=== PATIENT | male | born 1975 | race Caucasian/White ===

== ENCOUNTER 2018-01-28 18:45 | Inpatient (IN) ==
[2018-01-28] MEDS ORDERED: PHARMACY CONSULT - VANCOMYCIN XX SCH (19:39)
[2018-01-28] MEDS ORDERED: PHENERGAN INJ 25 MG IV PRN (19:39)
[2018-01-28] MEDS ORDERED: NORCO 7.5/325 MG TAB PO PRN (19:39)
[2018-01-28] MEDS ORDERED: VANCOMYCIN HCL 1 GM VIAL 1 G in D5W 250 ML IV 250 ML IV ONE (20:00)
[2018-01-28 20:23] LABS: BILIRUBIN,URINE NEGATIVE (NEGATIVE); BLOOD/HEMOGLOBIN,URINE NEGATIVE (NEGATIVE); GLUCOSE, URINE NEGATIVE (NEGATIVE); KETONES,URINE NEGATIVE (NEGATIVE); LEUKOCYTE ESTERASE ,URINE NEGATIVE (NEGATIVE); NITRITES,URINE NEGATIVE (NEGATIVE); PROTEIN,URINE NEGATIVE (NEGATIVE); UROBILINOGEN,URINE NORMAL (NORMAL)
[2018-01-28 20:23] LABS: BASOPHILS % (AUTO) 0.3 % (0.2-1.0); EOSINOPHILS # (AUTO) 0.1 x10^3/uL (0.0-0.2); EOSINOPHILS % (AUTO) 1.2 % (0.9-2.9); HEMATOCRIT 46.9 % (42.0-54.0); HEMOGLOBIN 16.2 g/dL (13.5-18.0); MEAN CORPUSCULAR HEMOGLOBIN 32.2 pg (27.0-34.0); MEAN CORPUSCULAR HGB CONC 34.5 g/dL (33.0-35.0); MEAN CORPUSCULAR VOLUME 93.3 fL (80.0-100.0); MEAN PLATELET VOLUME 8.7 fL (7.4-11.0); MONOCYTES # (AUTO) 1.2 x10^3/uL (0.3-0.8); MONOCYTES % (AUTO) 11.6 % (0.0-13.0); NEUTROPHILS # (AUTO) 7.2 x10^3/uL (2.2-4.8); NEUTROPHILS % (AUTO) 67.9 % (42.0-75.0); PLATELET COUNT 218 X10^3/uL (150.0-450.0); RED BLOOD COUNT 5.03 X10^6/uL (4.7-6.0); RED CELL DISTRIBUTION WIDTH 12.8 % (11.6-16.5); WHITE BLOOD COUNT 10.6 X10^3/uL (3.6-10.0)
[2018-01-28 20:32] LABS: APPEARANCE,URINE CLEAR (CLEAR); COLOR,URINE YELLOW (YELLOW)
[2018-01-28 20:35] LABS: ALANINE AMINOTRANSFERASE 58 Units/L (12-78); ALBUMIN 3.9 g/dL (3.4-5.0); ALKALINE PHOSPHATASE 70 Units/L (46-116); ASPARTATE AMINO TRANSFERASE 25 Units/L (15-37); BLOOD UREA NITROGEN 16 mg/dL (7-18); CALCIUM 8.9 mg/dL (8.5-10.1); CHLORIDE 102 mmol/L (98-107); CREATININE 0.96 mg/dL (0.70-1.30); SODIUM 139 mmol/L (136-145); TOTAL PROTEIN 8.1 g/dL (6.4-8.2); eGFR NON BLACK RACES > 60 (>60)
--- NOTE | 2018-01-28 22:05 | RAD ---
Right hand three views Indication: Ring finger swelling for 2 weeks Findings: There is soft tissue swelling about the ring finger, without underlying cortical lucency or malalignment. Swelling is also seen over the dorsum of the hand and to a lesser extent the long finger, index finger and little finger Impression: Soft tissue swelling over the hand, particularly the ring finger suggesting cellulitis. Significant soft tissue infection cannot be excluded. No osseous abnormality seen Reported By:
[2018-01-28 22:07] VITALS: BMI 34.0
[2018-01-28] MEDS: NS 1000 ML 1,000 ML IV SCH (22:17)
[2018-01-28] MEDS ORDERED: VANCOMYCIN 1 GRAM PREMIX (ADDVANTAGE) 250 ML IV ONE (22:32)
[2018-01-28] MEDS: TORADOL 30 MG VIAL IVP PRN (23:19)
[2018-01-29] MEDS ORDERED: VANCOMYCIN 1 GRAM PREMIX (ADDVANTAGE) 250 ML IV ONE (04:21)
[2018-01-29] MEDS: VANCOMYCIN HCL 1 GM VIAL 1 G in D5W 250 ML IV 250 ML IV SCH ×2 (05:00→13:27)
[2018-01-29 06:11] LABS: BASOPHILS % (AUTO) 0.4 % (0.2-1.0); EOSINOPHILS # (AUTO) 0.1 x10^3/uL (0.0-0.2); HEMATOCRIT 46.8 % (42.0-54.0); HEMOGLOBIN 16.2 g/dL (13.5-18.0); LYMPHOCYTES # (AUTO) 1.9 X10^3/uL (1.3-2.9); LYMPHOCYTES % (AUTO) 15.5 % (21.0-51.0); MEAN CORPUSCULAR HGB CONC 34.5 g/dL (33.0-35.0); MEAN CORPUSCULAR VOLUME 92.8 fL (80.0-100.0); MEAN PLATELET VOLUME 9.1 fL (7.4-11.0); MONOCYTES # (AUTO) 1.6 x10^3/uL (0.3-0.8); MONOCYTES % (AUTO) 12.8 % (0.0-13.0); NEUTROPHILS # (AUTO) 8.6 x10^3/uL (2.2-4.8); NEUTROPHILS % (AUTO) 70.3 % (42.0-75.0); PLATELET COUNT 205 X10^3/uL (150.0-450.0); RED BLOOD COUNT 5.04 X10^6/uL (4.7-6.0); RED CELL DISTRIBUTION WIDTH 12.5 % (11.6-16.5); WHITE BLOOD COUNT 12.3 X10^3/uL (3.6-10.0)
[2018-01-29 06:18] LABS: ALANINE AMINOTRANSFERASE 50 Units/L (12-78); ALBUMIN 3.6 g/dL (3.4-5.0); ALKALINE PHOSPHATASE 68 Units/L (46-116); ASPARTATE AMINO TRANSFERASE 29 Units/L (15-37); BLOOD UREA NITROGEN 14 mg/dL (7-18); CALCIUM 8.6 mg/dL (8.5-10.1); CARBON DIOXIDE 24.5 mmol/L (21-32); CHLORIDE 103 mmol/L (98-107); CREATININE 0.97 mg/dL (0.70-1.30); SODIUM 138 mmol/L (136-145); TOTAL PROTEIN 7.7 g/dL (6.4-8.2); eGFR NON BLACK RACES > 60 (>60)
[2018-01-29 06:52] LABS: ERYTHROCYTE SEDIMENTATION RATE 14 MM/HOUR (0-15)
[2018-01-29] MEDS: TORADOL 30 MG VIAL IVP PRN (07:25)
[2018-01-29] MEDS: NS 1000 ML 1,000 ML IV SCH ×2 (08:49→11:02)
[2018-01-29] MEDS ORDERED: XYLOCAINE 2 % (PLAIN) ONE (09:24)
[2018-01-29] MEDS ORDERED: XYLOCAINE 1 % (PLAIN) ONE (09:40)
--- NOTE | 2018-01-29 10:57 | OR.GENERIC ---
Post-Op Note Generic - Post-Op Note Operative Report: drainage and debridement of finger abscess Rt ring finger . located on the dorsal aspect of the finger there was associated cellulitis with dusky skin and edema of the finger. C&S was obtained . will keep the hand elevated on IV pole in a sling .
--- NOTE | 2018-01-29 11:01 | DR.UPDATE ---
H&P Update History and Physical Update: WAS SEEN IN THE OFFICE BY CRISTINA GARCIA VENEER CLIPPER ON SATURDAY AND TREATED FOR CELLULITIS TO THE RIGHT HAND AND RING FINGER. HE HAS BEEN ON ORAL ANTIBIOTICS WITH NO IMPROVEMENT IN SYMPTOMS. HE WAS ADMITTED FOR IV ANTIBIOTIC THERAPY AND SURGICAL CONSULT. HE HAS BEEN SEEN AND EXAMINED WITH NO CHANGES NOT ED TO H&P Changes noted: NO Yes with the following:
[2018-01-29] MEDS: DILAUDID INJ IVP PRN ×3 (11:02→22:28)
[2018-01-29] MEDS ORDERED: XYLOCAINE 1 % (PLAIN) IM ONE (11:11)
[2018-01-29] MEDS ORDERED: NS IRRIGATION 500 ML IR ONE (13:41)
[2018-01-29] MEDS ORDERED: VERSED ONE (16:04)
[2018-01-29 21:24] LABS: CREATININE 0.96 mg/dL (0.70-1.30); VANCOMYCIN,TROUGH 7.4 ug/mL (15-20)
[2018-01-29] MEDS ORDERED: PHARMACY COMMENT IV NR (21:30)
[2018-01-29] MEDS ORDERED: VANCOMYCIN HCL 1 GM VIAL ONE (22:10)
[2018-01-29] MEDS ORDERED: VANCOMYCIN HCL 500 MG VIAL ONE (22:10)
[2018-01-29] MEDS ORDERED: D5W 250 ML IV 250 ML IV ONE (22:10)
[2018-01-29] MEDS: VANCOMYCIN HCL 500 MG VIAL 250 MG, VANCOMYCIN HCL 1 GM VIAL 1 G in D5W 250 ML IV 250 ML IV SCH (22:25)
[2018-01-30] MEDS: NS 1000 ML 1,000 ML IV SCH ×4 (02:01→22:40)
[2018-01-30] MEDS: DILAUDID INJ IVP PRN (02:05)
[2018-01-30] MEDS ORDERED: VANCOMYCIN HCL 500 MG VIAL ONE (02:28)
[2018-01-30] MEDS ORDERED: VANCOMYCIN HCL 1 GM VIAL ONE (02:28)
[2018-01-30] MEDS ORDERED: D5W 250 ML IV 250 ML IV ONE (02:28)
[2018-01-30] MEDS: VANCOMYCIN HCL 500 MG VIAL 250 MG, VANCOMYCIN HCL 1 GM VIAL 1 G in D5W 250 ML IV 250 ML IV SCH ×3 (05:36→22:40)
[2018-01-30 05:58] LABS: BASOPHILS % (AUTO) 0.6 % (0.2-1.0); EOSINOPHILS # (AUTO) 0.1 x10^3/uL (0.0-0.2); EOSINOPHILS % (AUTO) 2.3 % (0.9-2.9); HEMATOCRIT 44.2 % (42.0-54.0); HEMOGLOBIN 15.3 g/dL (13.5-18.0); LYMPHOCYTES # (AUTO) 1.6 X10^3/uL (1.3-2.9); LYMPHOCYTES % (AUTO) 26.2 % (21.0-51.0); MEAN CORPUSCULAR HEMOGLOBIN 32.6 pg (27.0-34.0); MEAN CORPUSCULAR HGB CONC 34.5 g/dL (33.0-35.0); MEAN CORPUSCULAR VOLUME 94.4 fL (80.0-100.0); MEAN PLATELET VOLUME 8.3 fL (7.4-11.0); MONOCYTES # (AUTO) 0.7 x10^3/uL (0.3-0.8); MONOCYTES % (AUTO) 11.1 % (0.0-13.0); NEUTROPHILS # (AUTO) 3.7 x10^3/uL (2.2-4.8); NEUTROPHILS % (AUTO) 59.8 % (42.0-75.0); PLATELET COUNT 195 X10^3/uL (150.0-450.0); RED BLOOD COUNT 4.69 X10^6/uL (4.7-6.0); RED CELL DISTRIBUTION WIDTH 12.6 % (11.6-16.5); WHITE BLOOD COUNT 6.2 X10^3/uL (3.6-10.0)
[2018-01-30 06:13] LABS: ALANINE AMINOTRANSFERASE 44 Units/L (12-78); ALBUMIN 3.1 g/dL (3.4-5.0); ALKALINE PHOSPHATASE 57 Units/L (46-116); ASPARTATE AMINO TRANSFERASE 21 Units/L (15-37); BLOOD UREA NITROGEN 10 mg/dL (7-18); CALCIUM 8.4 mg/dL (8.5-10.1); CARBON DIOXIDE 26.6 mmol/L (21-32); CHLORIDE 102 mmol/L (98-107); COR CA(FOR HYPOALB) 9.1 mg/dL (8.5-10.1); COR NA(FOR HYPERGLY) 138 mmol/L (136-145); CREATININE 0.84 mg/dL (0.70-1.30); SODIUM 137 mmol/L (136-145); TOTAL PROTEIN 6.8 g/dL (6.4-8.2); eGFR NON BLACK RACES > 60 (>60)
[2018-01-30] MEDS: TORADOL 30 MG VIAL IVP PRN ×3 (07:30→22:53)
[2018-01-30] MEDS ORDERED: NORCO 10/325 TAB PO PRN (09:41)
--- NOTE | 2018-01-30 10:23 | PCM.PROG ---
Progress Note - Progress Note for Day of Date of Exam: 01/29/18 - Subjective Subjective: WAS ADMITTED FOR RIGHT HAND/FINGER CELLULITIS THAT STARTED EARLIER IN THE WEEK. HE HAD BEEN TAKING KEFLEX AND BACTRIM AT HOME WITHOUT IMPROVEMENT. TODAY, HE IS ALERT AND ORIENTED, SITTING IN CHAIR ON MORNING ROUNDS. RIGHT RING FINGER IS NOTED TO BE VERY EDEMATOUS AND RED. THERE IS PURULENT DRAINAGE NOTED. HIS VITALS THIS MORNING ARE 98.2-73-22-98%RA-144/81. LABS WERE OBTAINED. ABNORMAL LAB VALUES INCLUDE THE FOLLOWING: WBC 12.3, GLUCOSE 100, CRP 42.90. WOUND CULTURES ARE PENDING. A HAND XRAY WAS OBTAINED ON ADMISSION AND REVEALED: Soft tissue swelling over the hand, particularly the ring finger suggesting cellulitis. Significant soft tissue infection cannot be excluded. No osseous abnormality seen. HAS CONSULTED WITH PATIENT THIS MORNING AND PLANS TO TAKE HIM TO THE OR FOR I&D AND DEBRIDEMENT. WE ARE IN AGREEMENT WITH PLAN. HE IS CURRENTLY RECEIVING IV VANCOMYCIN. WE WILL CONTINUE WITH CURRENT PLAN OF CARE TODAY. OTHERWISE, WE WILL FOLLOW UP WITH AM LABS AND CONTINUE TO MONTIOR PATIENT. - Past Medical Family Social History Past Med/Fam/Surg Hx: No changes since H&P Allergies: Allergies No Known Drug Allergies [NKDA] Allergy (Verified 01/28/18 19:39) - Review of Systems ROS: No change since H&P - Vital Signs and I&O's Vital Signs: Temperature 97.5 F Pulse Rate [Left Radial] 59 Respiratory Rate 20 Blood Pressure [Left Arm] 135/75 Blood Pressure [Right Arm] 144/81 O2 Sat by Pulse Oximetry 98 Intake and Output: Intake & Output 01/27/18 01/28/18 01/29/18 01/30/18 11:59 11:59 11:59 11:59 Intake Total 1780 / 1780 6112 / 6112 Output Total 100 / 100 6 / Balance 1680 / 1680 6106 / 6106 - Physical Exam Oriented: Normal Eyes: Normal Ear: Normal Nose: Normal Throat: Normal Respiratory: Normal Cardiovascular: Normal : Normal Auscultation: Bowel Sounds: Normal Palpation: Normal Tenderness: Normal Skin: Red, Tender, Hot, Wound Musculoskeletal: Right, Hand, Swelling, Tender Psychiatric: Normal Mood Description: Calm Affect: Normal Speech Pattern: Clear - Laboratory and Diagnostics Result Diagrams: 01/30/18 05:34 01/30/18 05:34 Labs: 01/29/18 10:20 Finger - Right Ring Gram Stain - Final 01/29/18 10:20 Finger - Right Ring Wound Culture - Preliminary 01/28/18 22:47 Hand - Right Gram Stain - Final 01/28/18 22:47 Hand - Right Wound Culture - Preliminary Laboratory WBC 6.2 X10^3/uL (3.6-10.0) 01/30/18 05:34 RBC 4.69 X10^6/uL (4.7-6.0) L 01/30/18 05:34 Hgb 15.3 g/dL (13.5-18.0) 01/30/18 05:34 Hct 44.2 % (42.0-54.0) 01/30/18 05:34 MCV 94.4 fL (80.0-100.0) 01/30/18 05:34 MCH 32.6 pg (27.0-34.0) 01/30/18 05:34 MCHC 34.5 g/dL (33.0-35.0) 01/30/18 05:34 RDW 12.6 % (11.6-16.5) 01/30/18 05:34 Plt Count 195 X10^3/uL (150.0-450.0) 01/30/18 05:34 MPV 8.3 fL (7.4-11.0) 01/30/18 05:34 Neut % (Auto) 59.8 % (42.0-75.0) 01/30/18 05:34 Lymph % (Auto) 26.2 % (21.0-51.0) 01/30/18 05:34 [place] % (Auto) 11.1 % (0.0-13.0) 01/30/18 05:34 Eos % (Auto) 2.3 % (0.9-2.9) 01/30/18 05:34 Baso % (Auto) 0.6 % (0.2-1.0) 01/30/18 05:34 Neut # (Auto) 3.7 x10^3/uL (2.2-4.8) 01/30/18 05:34 Lymph # (Auto) 1.6 X10^3/uL (1.3-2.9) 01/30/18 05:34 [place] # (Auto) 0.7 x10^3/uL (0.3-0.8) 01/30/18 05:34 Eos # (Auto) 0.1 x10^3/uL (0.0-0.2) 01/30/18 05:34 Baso # (Auto) 0.0 X10^3/uL (0.0-0.1) 01/30/18 05:34 Absolute Nucleated RBC 0.0 /100WBC 01/30/18 05:34 ESR 14 MM/HOUR (0-15) 01/29/18 05:18 Sodium 137 mmol/L (136-145) 01/30/18 05:34 Corrected Sodium 138 mmol/L (136-145) 01/30/18 05:34 Potassium 4.0 mmol/L (3.5-5.1) 01/30/18 05:34 Chloride 102 mmol/L (98-107) 01/30/18 05:34 Carbon Dioxide 26.6 mmol/L (21-32) 01/30/18 05:34 BUN 10 mg/dL (7-18) 01/30/18 05:34 Creatinine 0.84 mg/dL (0.70-1.30) 01/30/18 05:34 Est GFR (MDRD) Af Amer > 60 (>60) 01/30/18 05:34 Est GFR (MDRD) Non-Af > 60 (>60) 01/30/18 05:34 Glucose 130 mg/dL (65-99) H 01/30/18 05:34 Calcium 8.4 mg/dL (8.5-10.1) L 01/30/18 05:34 Corrected Calcium 9.1 mg/dL (8.5-10.1) 01/30/18 05:34 Total Bilirubin 0.40 mg/dL (0.2-1.0) 01/30/18 05:34 AST 21 Units/L (15-37) 01/30/18 05:34 ALT 44 Units/L (12-78) 01/30/18 05:34 Alkaline Phosphatase 57 Units/L (46-116) 01/30/18 05:34 C-Reactive Protein 42.90 mg/L (0-3.0) H 01/29/18 05:18 Total Protein 6.8 g/dL (6.4-8.2) 01/30/18 05:34 Albumin 3.1 g/dL (3.4-5.0) L 01/30/18 05:34 Globulin 3.7 g/dL (2.5-4.5) 01/30/18 05:34 Albumin/Globulin Ratio 0.8 Ratio (1.1-2.1) L 01/30/18 05:34 Specimen Type Clean catch urine 01/28/18 20:00 Urine Color Yellow (YELLOW) 01/28/18 20:00 Urine Appearance Clear (CLEAR) 01/28/18 20:00 Urine pH 6.0 (5.0 - 8.0) 01/28/18 20:00 Ur Specific [place] 1.015 (1.000-1.030) 01/28/18 20:00 Urine Protein Negative (NEGATIVE) 01/28/18 20:00 Urine Glucose (UA) Negative (NEGATIVE) 01/28/18 20:00 Urine Ketones Negative (NEGATIVE) 01/28/18 20:00 Urine Occult Blood Negative (NEGATIVE) 01/28/18 20:00 Urine Nitrite Negative (NEGATIVE) 01/28/18 20:00 Urine Bilirubin Negative (NEGATIVE) 01/28/18 20:00 Urine Urobilinogen Normal (NORMAL) 01/28/18 20:00 Ur Leukocyte Esterase Negative (NEGATIVE) 01/28/18 20:00 Vancomycin Trough 7.4 ug/mL (15-20) L 01/29/18 21:05 - Plan (1) Cellulitis of finger of right hand Status: Acute Plan: IV ANTIBIOTICS, WOUND CARE, WOUND CULTURES, I&D AND DEBRIDEMENT TODAY, CONTINUE TO MONITOR
[2018-01-30] MEDS ORDERED: PHARMACY COMMENT IV NR (21:00)
--- NOTE | 2018-01-30 21:33 | PCM.PROG ---
Progress Note - Progress Note for Day of Date of Exam: 01/30/18 - Subjective Subjective: WAS ADMITTED FOR RIGHT HAND/FINGER CELLULITIS THAT STARTED EARLIER IN THE WEEK. HE HAD BEEN TAKING KEFLEX AND BACTRIM AT HOME WITHOUT IMPROVEMENT. TODAY, HE IS ALERT AND ORIENTED, SITTING IN CHAIR ON MORNING ROUNDS. RIGHT RING FINGER IS NOTED TO BE VERY EDEMATOUS AND RED. THERE IS PURULENT DRAINAGE NOTED. HIS VITALS THIS MORNING ARE 97.5-59-20-98%-135/75. LABS WERE OBTAINED. ABNORMAL LAB VALUES INCLUDE THE FOLLOWING: RBC 4.69, GLUCOSE 130, CALCIUM 8.4, ALBUMIN 3.1. WOUND CULTURES AND BLOOD CULTURES ARE PENDING. TOOK PATIENT TO THE OR YESTERDAY FOR I&D AND DEBRIDEMENT OF WOUND. HE REPORTS THAT THERE WAS A LARGE AMOUNT OF PURULENT COLLECTION UNDERNEATH WHICH WAS TRACING DOWN CLOSE TO THE TENDONS. HE IS CURRENTLY RECEIVING IV VANCOMYCIN. WE WILL CONTINUE WITH CURRENT PLAN OF CARE TODAY. WE WILL INCREASE NORCO TO 10/325MG PO Q6H PRN. OTHERWISE, WE WILL FOLLOW UP WITH AM LABS AND CONTINUE TO MONTIOR PATIENT. - Past Medical Family Social History Past Med/Fam/Surg Hx: No changes since H&P Allergies: Allergies No Known Drug Allergies [NKDA] Allergy (Verified 01/28/18 19:39) - Review of Systems ROS: No change since H&P - Vital Signs and I&O's Vital Signs: Temperature 97.9 F Pulse Rate [Left Radial] 66 Respiratory Rate 20 Blood Pressure [Left Arm] 139/76 Blood Pressure [Right Arm] 144/81 O2 Sat by Pulse Oximetry 96 Intake and Output: Intake & Output 01/28/18 01/29/18 01/30/18 01/31/18 11:59 11:59 11:59 11:59 Intake Total 1780 / 1780 6112 / 6112 1879 Output Total 100 / 100 6 / 6 Balance 1680 / 1680 6106 / 6106 1879 - Physical Exam Oriented: Normal Eyes: Normal Ear: Normal Nose: Normal Throat: Normal Respiratory: Normal Cardiovascular: Normal : Normal Auscultation: Bowel Sounds: Normal Palpation: Normal Tenderness: Normal Skin: Red, Tender, Hot, Wound Musculoskeletal: Right, Hand, Swelling, Tender Psychiatric: Normal Mood Description: Calm Affect: Normal Speech Pattern: Clear - Laboratory and Diagnostics Result Diagrams: 01/30/18 05:34 01/30/18 05:34 Labs: 01/28/18 22:47 Hand - Right Gram Stain - Final 01/28/18 22:47 Hand - Right Wound Culture - Preliminary 01/28/18 19:54 Blood Blood Culture - Preliminary 01/28/18 19:48 Blood Blood Culture - Preliminary 01/29/18 10:20 Finger - Right Ring Gram Stain - Final 01/29/18 10:20 Finger - Right Ring Wound Culture - Preliminary Laboratory WBC 6.2 X10^3/uL (3.6-10.0) 01/30/18 05:34 RBC 4.69 X10^6/uL (4.7-6.0) L 01/30/18 05:34 Hgb 15.3 g/dL (13.5-18.0) 01/30/18 05:34 Hct 44.2 % (42.0-54.0) 01/30/18 05:34 MCV 94.4 fL (80.0-100.0) 01/30/18 05:34 MCH 32.6 pg (27.0-34.0) 01/30/18 05:34 MCHC 34.5 g/dL (33.0-35.0) 01/30/18 05:34 RDW 12.6 % (11.6-16.5) 01/30/18 05:34 Plt Count 195 X10^3/uL (150.0-450.0) 01/30/18 05:34 MPV 8.3 fL (7.4-11.0) 01/30/18 05:34 Neut % (Auto) 59.8 % (42.0-75.0) 01/30/18 05:34 Lymph % (Auto) 26.2 % (21.0-51.0) 01/30/18 05:34 [place] % (Auto) 11.1 % (0.0-13.0) 01/30/18 05:34 Eos % (Auto) 2.3 % (0.9-2.9) 01/30/18 05:34 Baso % (Auto) 0.6 % (0.2-1.0) 01/30/18 05:34 Neut # (Auto) 3.7 x10^3/uL (2.2-4.8) 01/30/18 05:34 Lymph # (Auto) 1.6 X10^3/uL (1.3-2.9) 01/30/18 05:34 [place] # (Auto) 0.7 x10^3/uL (0.3-0.8) 01/30/18 05:34 Eos # (Auto) 0.1 x10^3/uL (0.0-0.2) 01/30/18 05:34 Baso # (Auto) 0.0 X10^3/uL (0.0-0.1) 01/30/18 05:34 Absolute Nucleated RBC 0.0 /100WBC 01/30/18 05:34 ESR 14 MM/HOUR (0-15) 01/29/18 05:18 Sodium 137 mmol/L (136-145) 01/30/18 05:34 Corrected Sodium 138 mmol/L (136-145) 01/30/18 05:34 Potassium 4.0 mmol/L (3.5-5.1) 01/30/18 05:34 Chloride 102 mmol/L (98-107) 01/30/18 05:34 Carbon Dioxide 26.6 mmol/L (21-32) 01/30/18 05:34 BUN 10 mg/dL (7-18) 01/30/18 05:34 Creatinine 0.84 mg/dL (0.70-1.30) 01/30/18 05:34 Est GFR (MDRD) Af Amer > 60 (>60) 01/30/18 05:34 Est GFR (MDRD) Non-Af > 60 (>60) 01/30/18 05:34 Glucose 130 mg/dL (65-99) H 01/30/18 05:34 Calcium 8.4 mg/dL (8.5-10.1) L 01/30/18 05:34 Corrected Calcium 9.1 mg/dL (8.5-10.1) 01/30/18 05:34 Total Bilirubin 0.40 mg/dL (0.2-1.0) 01/30/18 05:34 AST 21 Units/L (15-37) 01/30/18 05:34 ALT 44 Units/L (12-78) 01/30/18 05:34 Alkaline Phosphatase 57 Units/L (46-116) 01/30/18 05:34 C-Reactive Protein 42.90 mg/L (0-3.0) H 01/29/18 05:18 Total Protein 6.8 g/dL (6.4-8.2) 01/30/18 05:34 Albumin 3.1 g/dL (3.4-5.0) L 01/30/18 05:34 Globulin 3.7 g/dL (2.5-4.5) 01/30/18 05:34 Albumin/Globulin Ratio 0.8 Ratio (1.1-2.1) L 01/30/18 05:34 Specimen Type Clean catch urine 01/28/18 20:00 Urine Color Yellow (YELLOW) 01/28/18 20:00 Urine Appearance Clear (CLEAR) 01/28/18 20:00 Urine pH 6.0 (5.0 - 8.0) 01/28/18 20:00 Ur Specific [place] 1.015 (1.000-1.030) 01/28/18 20:00 Urine Protein Negative (NEGATIVE) 01/28/18 20:00 Urine Glucose (UA) Negative (NEGATIVE) 01/28/18 20:00 Urine Ketones Negative (NEGATIVE) 01/28/18 20:00 Urine Occult Blood Negative (NEGATIVE) 01/28/18 20:00 Urine Nitrite Negative (NEGATIVE) 01/28/18 20:00 Urine Bilirubin Negative (NEGATIVE) 01/28/18 20:00 Urine Urobilinogen Normal (NORMAL) 01/28/18 20:00 Ur Leukocyte Esterase Negative (NEGATIVE) 01/28/18 20:00 Vancomycin Trough 7.4 ug/mL (15-20) L 01/29/18 21:05 - Plan (1) Cellulitis of finger of right hand Status: Acute Plan: IV ANTIBIOTICS, WOUND CARE, WOUND CULTURES, CONTINUE TO MONITOR
[2018-01-30 21:56] LABS: CREATININE 0.97 mg/dL (0.70-1.30); VANCOMYCIN,TROUGH 10.5 ug/mL (15-20)
[2018-01-30] MEDS: AMBIEN PO PRN (23:15)
[2018-01-31] MEDS: VANCOMYCIN HCL 500 MG VIAL 250 MG, VANCOMYCIN HCL 1 GM VIAL 1 G in D5W 250 ML IV 250 ML IV SCH (05:55)
[2018-01-31 05:58] LABS: BASOPHILS % (AUTO) 0.8 % (0.2-1.0); EOSINOPHILS # (AUTO) 0.2 x10^3/uL (0.0-0.2); EOSINOPHILS % (AUTO) 2.9 % (0.9-2.9); HEMATOCRIT 44.3 % (42.0-54.0); HEMOGLOBIN 15.2 g/dL (13.5-18.0); LYMPHOCYTES # (AUTO) 1.7 X10^3/uL (1.3-2.9); LYMPHOCYTES % (AUTO) 32.3 % (21.0-51.0); MEAN CORPUSCULAR HEMOGLOBIN 32.1 pg (27.0-34.0); MEAN CORPUSCULAR HGB CONC 34.2 g/dL (33.0-35.0); MEAN PLATELET VOLUME 8.2 fL (7.4-11.0); MONOCYTES # (AUTO) 0.6 x10^3/uL (0.3-0.8); MONOCYTES % (AUTO) 11.5 % (0.0-13.0); NEUTROPHILS # (AUTO) 2.8 x10^3/uL (2.2-4.8); NEUTROPHILS % (AUTO) 52.5 % (42.0-75.0); PLATELET COUNT 201 X10^3/uL (150.0-450.0); RED BLOOD COUNT 4.71 X10^6/uL (4.7-6.0); RED CELL DISTRIBUTION WIDTH 12.7 % (11.6-16.5); WHITE BLOOD COUNT 5.4 X10^3/uL (3.6-10.0)
[2018-01-31 06:10] LABS: ALANINE AMINOTRANSFERASE 43 Units/L (12-78); ALBUMIN 3.1 g/dL (3.4-5.0); ALKALINE PHOSPHATASE 55 Units/L (46-116); ASPARTATE AMINO TRANSFERASE 23 Units/L (15-37); BLOOD UREA NITROGEN 13 mg/dL (7-18); CALCIUM 8.7 mg/dL (8.5-10.1); CARBON DIOXIDE 29.8 mmol/L (21-32); CHLORIDE 105 mmol/L (98-107); COR CA(FOR HYPOALB) 9.4 mg/dL (8.5-10.1); CREATININE 0.87 mg/dL (0.70-1.30); SODIUM 143 mmol/L (136-145); TOTAL PROTEIN 6.8 g/dL (6.4-8.2); eGFR NON BLACK RACES > 60 (>60)
--- NOTE | 2018-01-31 06:37 | DR.PROGNOT ---
Hospital Progress Notes - Progress Note for Day of: Progress Note Date: 01/31/18 - Chief Complaint Chief Complaint: pain and swelling Rt ring finger is much better . only mild drainage . - Past Medical Family Social History Past Med/Fam/Surg Hx: No changes since H&P Allergies: Allergies No Known Drug Allergies [NKDA] Allergy (Verified 01/28/18 19:39) - Review Of Systems ROS: No change since H&P - Vital Signs Vital Signs: Temperature 97.6 F Pulse Rate [Left Radial] 58 Respiratory Rate 20 Blood Pressure [Left Arm] 138/80 Blood Pressure [Right Arm] 144/81 O2 Sat by Pulse Oximetry 98 - Physical Exam Oriented: Normal Eyes: Normal Ear: Normal Nose: Normal Throat: Normal Respiratory: Normal Cardiovascular: Normal : Normal GI:Auscultation: Normal GI:Palpation: Normal GI: Tenderness: Normal Skin: Wound (dorsal aspect Rt ring finger proximal phalanx is still open with exudate .) Musculoskeletal: Right, Hand, Swelling, Tender (normal ROM) Psychiatric: Normal Mood Description: Calm Affect: Normal Speech Pattern: Clear - Laboratory and Diagnostics Result Diagrams: 01/31/18 05:33 01/31/18 05:33 Labs: 01/28/18 22:47 Hand - Right Gram Stain - Final 01/28/18 22:47 Hand - Right Wound Culture - Preliminary 01/28/18 19:54 Blood Blood Culture - Preliminary 01/28/18 19:48 Blood Blood Culture - Preliminary 01/29/18 10:20 Finger - Right Ring Gram Stain - Final 01/29/18 10:20 Finger - Right Ring Wound Culture - Preliminary Laboratory WBC 5.4 X10^3/uL (3.6-10.0) 01/31/18 05:33 RBC 4.71 X10^6/uL (4.7-6.0) 01/31/18 05:33 Hgb 15.2 g/dL (13.5-18.0) 01/31/18 05:33 Hct 44.3 % (42.0-54.0) 01/31/18 05:33 MCV 94.0 fL (80.0-100.0) 01/31/18 05:33 MCH 32.1 pg (27.0-34.0) 01/31/18 05:33 MCHC 34.2 g/dL (33.0-35.0) 01/31/18 05:33 RDW 12.7 % (11.6-16.5) 01/31/18 05:33 Plt Count 201 X10^3/uL (150.0-450.0) 01/31/18 05:33 MPV 8.2 fL (7.4-11.0) 01/31/18 05:33 Neut % (Auto) 52.5 % (42.0-75.0) 01/31/18 05:33 Lymph % (Auto) 32.3 % (21.0-51.0) 01/31/18 05:33 [place] % (Auto) 11.5 % (0.0-13.0) 01/31/18 05:33 Eos % (Auto) 2.9 % (0.9-2.9) 01/31/18 05:33 Baso % (Auto) 0.8 % (0.2-1.0) 01/31/18 05:33 Neut # (Auto) 2.8 x10^3/uL (2.2-4.8) 01/31/18 05:33 Lymph # (Auto) 1.7 X10^3/uL (1.3-2.9) 01/31/18 05:33 [place] # (Auto) 0.6 x10^3/uL (0.3-0.8) 01/31/18 05:33 Eos # (Auto) 0.2 x10^3/uL (0.0-0.2) 01/31/18 05:33 Baso # (Auto) 0.0 X10^3/uL (0.0-0.1) 01/31/18 05:33 Absolute Nucleated RBC 0.2 /100WBC 01/31/18 05:33 ESR 14 MM/HOUR (0-15) 01/29/18 05:18 Sodium 143 mmol/L (136-145) 01/31/18 05:33 Corrected Sodium TNP 01/31/18 05:33 Potassium 4.4 mmol/L (3.5-5.1) 01/31/18 05:33 Chloride 105 mmol/L (98-107) 01/31/18 05:33 Carbon Dioxide 29.8 mmol/L (21-32) 01/31/18 05:33 BUN 13 mg/dL (7-18) 01/31/18 05:33 Creatinine 0.87 mg/dL (0.70-1.30) 01/31/18 05:33 Est GFR (MDRD) Af Amer > 60 (>60) 01/31/18 05:33 Est GFR (MDRD) Non-Af > 60 (>60) 01/31/18 05:33 Glucose 97 mg/dL (65-99) 01/31/18 05:33 Calcium 8.7 mg/dL (8.5-10.1) 01/31/18 05:33 Corrected Calcium 9.4 mg/dL (8.5-10.1) 01/31/18 05:33 Total Bilirubin 0.30 mg/dL (0.2-1.0) 01/31/18 05:33 AST 23 Units/L (15-37) 01/31/18 05:33 ALT 43 Units/L (12-78) 01/31/18 05:33 Alkaline Phosphatase 55 Units/L (46-116) 01/31/18 05:33 C-Reactive Protein 42.90 mg/L (0-3.0) H 01/29/18 05:18 Total Protein 6.8 g/dL (6.4-8.2) 01/31/18 05:33 Albumin 3.1 g/dL (3.4-5.0) L 01/31/18 05:33 Globulin 3.7 g/dL (2.5-4.5) 01/31/18 05:33 Albumin/Globulin Ratio 0.8 Ratio (1.1-2.1) L 01/31/18 05:33 Specimen Type Clean catch urine 01/28/18 20:00 Urine Color Yellow (YELLOW) 01/28/18 20:00 Urine Appearance Clear (CLEAR) 01/28/18 20:00 Urine pH 6.0 (5.0 - 8.0) 01/28/18 20:00 Ur Specific [place] 1.015 (1.000-1.030) 01/28/18 20:00 Urine Protein Negative (NEGATIVE) 01/28/18 20:00 Urine Glucose (UA) Negative (NEGATIVE) 01/28/18 20:00 Urine Ketones Negative (NEGATIVE) 01/28/18 20:00 Urine Occult Blood Negative (NEGATIVE) 01/28/18 20:00 Urine Nitrite Negative (NEGATIVE) 01/28/18 20:00 Urine Bilirubin Negative (NEGATIVE) 01/28/18 20:00 Urine Urobilinogen Normal (NORMAL) 01/28/18 20:00 Ur Leukocyte Esterase Negative (NEGATIVE) 01/28/18 20:00 Vancomycin Trough 10.5 ug/mL (15-20) L 01/30/18 21:30 - Assessment and Plan 1: abscess and cellulitis Rt ring finger ,. s/p debridement . same local care , elevation and IV ATB. - Problem Patient Problems: Patient Problems Cellulitis of finger of right hand (Acute) L03.011
[2018-01-31] MEDS ORDERED: NS 250 ML IV 250 ML IV ONE ×2 (07:39→21:18)
[2018-01-31] MEDS ORDERED: MILK OF MAGNESIA PO SCH (09:00)
[2018-01-31] MEDS ORDERED: HYDROGEN PEROXIDE 3% ONE (09:55)
[2018-01-31] MEDS: NS 1000 ML 1,000 ML IV SCH ×2 (13:36→22:00)
[2018-01-31] MEDS: VANCOMYCIN HCL 500 MG VIAL 500 MG, VANCOMYCIN HCL 1 GM VIAL 1 G in D5W 250 ML IV 250 ML IV SCH ×2 (13:50→21:26)
[2018-01-31] MEDS: TORADOL 30 MG VIAL IVP PRN (15:45)
[2018-01-31 20:57] LABS: CREATININE 1.05 mg/dL (0.70-1.30); VANCOMYCIN,TROUGH 16.2 ug/mL (15-20)
[2018-01-31] MEDS ORDERED: PHARMACY COMMENT IV NR (21:00)
[2018-01-31] MEDS ORDERED: COLACE CAP 100 MG PO SCH (21:00)
[2018-01-31] MEDS: AMBIEN PO PRN (21:26)
[2018-02-01] MEDS: NS 1000 ML 1,000 ML IV SCH (05:48)
[2018-02-01] MEDS ORDERED: VANCOMYCIN HCL 1 GM VIAL ONE (06:15)
[2018-02-01] MEDS ORDERED: D5W 250 ML IV 250 ML IV ONE (06:16)
[2018-02-01] MEDS ORDERED: VANCOMYCIN HCL 500 MG VIAL ONE (06:16)
[2018-02-01 06:24] LABS: BASOPHILS % (AUTO) 0.5 % (0.2-1.0); EOSINOPHILS # (AUTO) 0.1 x10^3/uL (0.0-0.2); EOSINOPHILS % (AUTO) 2.8 % (0.9-2.9); HEMATOCRIT 43.6 % (42.0-54.0); HEMOGLOBIN 15.2 g/dL (13.5-18.0); LYMPHOCYTES # (AUTO) 1.7 X10^3/uL (1.3-2.9); LYMPHOCYTES % (AUTO) 31.3 % (21.0-51.0); MEAN CORPUSCULAR HEMOGLOBIN 32.2 pg (27.0-34.0); MEAN CORPUSCULAR VOLUME 91.9 fL (80.0-100.0); MEAN PLATELET VOLUME 8.1 fL (7.4-11.0); MONOCYTES # (AUTO) 0.6 x10^3/uL (0.3-0.8); MONOCYTES % (AUTO) 11.4 % (0.0-13.0); NEUTROPHILS # (AUTO) 2.9 x10^3/uL (2.2-4.8); PLATELET COUNT 212 X10^3/uL (150.0-450.0); RED BLOOD COUNT 4.74 X10^6/uL (4.7-6.0); RED CELL DISTRIBUTION WIDTH 12.4 % (11.6-16.5); WHITE BLOOD COUNT 5.3 X10^3/uL (3.6-10.0)
[2018-02-01] MEDS: VANCOMYCIN HCL 500 MG VIAL 500 MG, VANCOMYCIN HCL 1 GM VIAL 1 G in D5W 250 ML IV 250 ML IV SCH (06:32)
[2018-02-01 06:45] LABS: ALANINE AMINOTRANSFERASE 45 Units/L (12-78); ALKALINE PHOSPHATASE 54 Units/L (46-116); ASPARTATE AMINO TRANSFERASE 22 Units/L (15-37); BLOOD UREA NITROGEN 12 mg/dL (7-18); CALCIUM 8.5 mg/dL (8.5-10.1); CARBON DIOXIDE 27.3 mmol/L (21-32); CHLORIDE 107 mmol/L (98-107); COR CA(FOR HYPOALB) 9.3 mg/dL (8.5-10.1); CREATININE 0.85 mg/dL (0.70-1.30); SODIUM 144 mmol/L (136-145); TOTAL PROTEIN 6.6 g/dL (6.4-8.2); eGFR NON BLACK RACES > 60 (>60)
[2018-02-01] MEDS ORDERED: BACTROBAN TOPICAL OINT TOP ONE (09:56)
[2018-02-01] MEDS ORDERED: STERILE WATER IRRIGATION IR ONE ×2 (09:58→10:05)
[2018-02-01 10:59] VITALS: BP 144/88
[2018-02-01] MEDS ORDERED: PHARMACY COMMENT IV NR (21:00)
--- NOTE | 2018-02-17 01:02 | DR.CARTERD ---
- Discharge Summary for: Discharge Summary for Date of:: 02/01/18 - Admission Date Date of Admission: 01/28/18 - Admission Diagnoses Admission Diagnosis: (1) Cellulitis of finger of right hand - Discharge Date Discharge Date: 02/01/18 - Discharge Diagnoses Discharge Diagnosis: (1) Cellulitis of finger of right hand - Hospital Course Hospital Course: DAY ONE, WAS SEEN IN THE OFFICE BY CRISTINA WINN ON SATURDAY AND TREATED FOR CELLULITIS TO THE RIGHT HAND AND RING FINGER. HE HAS BEEN ON ORAL ANTIBIOTICS WITH NO IMPROVEMENT IN SYMPTOMS. HE WAS ADMITTED FOR IV ANTIBIOTIC THERAPY AND SURGICAL CONSULT. DAY TWO, WAS ADMITTED FOR RIGHT HAND/FINGER CELLULITIS THAT STARTED EARLIER IN THE WEEK. HE HAD BEEN TAKING KEFLEX AND BACTRIM AT HOME WITHOUT IMPROVEMENT. TODAY, HE WAS ALERT AND ORIENTED, SITTING IN CHAIR ON MORNING ROUNDS. RIGHT RING FINGER WAS NOTED TO BE VERY EDEMATOUS AND RED. THERE WAS PURULENT DRAINAGE NOTED. HIS VITALS THIS MORNING WERE 98.2-73-22-98%RA-144/81. LABS WERE OBTAINED. ABNORMAL LAB VALUES INCLUDED THE FOLLOWING: WBC 12.3, GLUCOSE 100, CRP 42.90. WOUND CULTURES ARE PENDING. A HAND XRAY WAS OBTAINED ON ADMISSION AND REVEALED: Soft tissue swelling over the hand, particularly the ring finger suggesting cellulitis. Significant soft tissue infection cannot be excluded. No osseous abnormality seen. HAS CONSULTED WITH PATIENT THIS MORNING AND PLANNED TO TAKE HIM TO THE OR FOR I&D AND DEBRIDEMENT. WE WERE IN AGREEMENT WITH PLAN. HE WAS RECEIVING IV VANCOMYCIN. WE CONTINUED WITH CURRENT PLAN OF CARE TODAY. WE FOLLOWED UP WITH AM LABS AND CONTINUED TO MONTIOR PATIENT. DAY THREE, HE WAS ALERT AND ORIENTED, SITTING IN CHAIR ON MORNING ROUNDS. RIGHT RING FINGER WAS NOTED TO BE VERY EDEMATOUS AND RED. THERE WAS PURULENT DRAINAGE NOTED. HIS VITALS THIS MORNING WERE 97.5-59-20-98%-135/75. LABS WERE OBTAINED. ABNORMAL LAB VALUES INCLUDED THE FOLLOWING: RBC 4.69, GLUCOSE 130, CALCIUM 8.4, ALBUMIN 3.1. WOUND CULTURES AND BLOOD CULTURES WERE PENDING. TOOK PATIENT TO THE OR YESTERDAY FOR I&D AND DEBRIDEMENT OF WOUND. HE REPORTED THAT THERE WAS A LARGE AMOUNT OF PURULENT COLLECTION UNDERNEATH WHICH WAS TRACING DOWN CLOSE TO THE TENDONS. HE WAS RECEIVING IV VANCOMYCIN. WE CONTINUED WITH CURRENT PLAN OF CARE TODAY. WE INCREASED NORCO TO 10/325MG PO Q6H PRN. WE FOLLOWED UP WITH AM LABS AND CONTINUED TO MONTIOR PATIENT. DAY FOUR, PAIN AND SWELLING IN RIGHT RING FINGER NOTED TO BE MUCH BETTER TODAY. LABS WERE WITHIN NORMAL RANGE FOR PATIENT. VITALS WERE STABLE. WE CONTINUED WITH CURRENT PLAN OF CARE. WE FOLLOWED UP WITH AM LABS AND CONTINUED TO MONITOR PATIENT. DAY FIVE, PATIENT LYING IN BED ALERT AND ORIENTED ON MORNING ROUNDS. PAIN AND SWELLING TO RIGHT RING FINGER HAD SIGNIFICANTLY IMPROVED. ORAL PAIN MEDICATIONS WERE CONTROLLING PAIN. LABS WERE IN NORMAL RANGE FOR PATIENT. VITALS WERE STABLE. WE PLANNED FOR DISCHARGE. INSTRUCTIONS FOR MEDICATIONS AND FOLLOW UP WERE DISCUSSED WITH PATIENT AND FAMILY, BOTH VOICED UNDERSTANDING. PATIENT WAS DISCHARGED HOME IN STABLE CONDITION WITH FAMILY. - Discharge Medications Discharge Medications: Home Medication List aspirin 81 mg PO HS 01/28/18 [History] ciprofloxacin HCl [Cipro] 750 mg PO Q12H #28 tab 02/01/18 [Rx] Prescriptions: ciprofloxacin HCl [Cipro] Manny Sun - Discharge Disposition Discharge Disposition: PATIENT TO FOLLOW UP IN OUR OFFICE IN ONE WEEK. PATIENT TO FOLLOW UP WITH DR. BEYER ON NEXT AVAILABLE APPOINTMENT TIME.
== END 2018-02-01 12:05 | disposition home or self-care (01) | DRG 603 ==
LOC: EDBD 19:16 → OBS 19:16 → MED/SURG 01-31 15:50
PROVIDERS: ADMIT Internal Medicine; ATTEND Internal Medicine
DX: L03.113 Cellulitis of right upper limb; L03.011 Cellulitis of right finger; R79.82 Elevated C-reactive protein (CRP); M79.89 Other specified soft tissue disorders; B95.62 Methicillin resistant Staphylococcus aureus infection as the cause of diseases classified elsewhere; L02.511 Cutaneous abscess of right hand
CPT/HCPCS: 36415; 73130; 80053; 80202; 81003; 82565; 85025; 85652; 86140; 87040; 87070; 87075; 87077; 87186; 87205; A4216; A4222; J1170; J1885; J2250; J3370; J3490; J7030; J7050; J7060